=== PATIENT | female | born 1965 | race Hispanic/Latino ===

== ENCOUNTER → 2023-04-29 | Day surgery (SDC) | payer BC ==
[2023-04-28 15:49] VITALS: BMI 42.3
[2023-04-28 16:14] LABS: Hematocrit 39.4 % (34.9-44.5); Hemoglobin 12.9 g/dL (12.0-15.5); Mean Corpuscular HGB CONC 32.7 g/dL (32.0-36.0); Mean Corpuscular Hemoglobin 27.4 pg (27.0-33.0); Mean Corpuscular Volume 83.8 fl (81.6-98.3); Mean Platelet Volume 9.2 fl (7.4-10.4); Platelet Count 216 10x3/uL (150-450); RBC Distribution Width 15.5 % (11.5-14.5); White Blood Cell (WBC) Count 8.9 10x3/uL (3.5-10.5)
[2023-04-28 16:32] LABS: PTT 29.8 sec (22.0-33.0); Prothrombin Time 10.8 sec (9.5-12.1)
[2023-04-28 16:34] LABS: ALT (SGPT) 18 U/L (8-55); AST (SGOT) 18 U/L (5-34); Albumin 4.3 g/dL (3.5-5.0); Alkaline Phosphatase 73 U/L (40-110); Anion Gap 15 mmol/L (10-20); BUN (Urea Nitrogen) 25 mg/dL (9.8-20.1); Bilirubin, Direct 0.2 mg/dL (0.1-0.3); Bilirubin, Total 0.5 mg/dL (0.2-1.2); Calc. Creatinine Clearance 100 mL/min (70-130); Calcium 8.4 mg/dL (7.8-10.44); Carbon Dioxide 25 mmol/L (22-29); Chloride 106 mmol/L (98-107); Estimated GFR 48; Glucose 90 mg/dL (70-105); Potassium 4.1 mmol/L (3.5-5.1); Protein, Total 6.1 g/dL (6.0-8.3); Sodium 142 mmol/L (136-145)
[~2023-04-29] MED LIST: Albuterol HFA (OR) 200 PUFF INH ONE; Dexamethasone 20 MG/5 ML VIAL ONE; Famotidine/PF 20 mg/2ml Vial ONE; Heparin 10,000 UNITS/ 10 ML VIAL ONE; Heparin 25,000 units/D5W 500 ML ONE; Isoproterenol 0.2 MG/1 ML AMP ONE; Ketorolac Tromethamine 30 MG/ML VIAL ONE; Lidocaine 1% PF 5 ML VIAL ONE; Metoclopramide HCl 10 MG/2 ML VIAL ONE; Ondansetron PF 4 MG/2 ML Vial ONE; PROPOFOL 200 MG/20 ML VIAL ONE; Protamine Sulfate 50 MG/5 ML VIAL ONE; Rocuronium Bromide 10 MG/ML (10ML VIAL) ONE; SUGAMMADEX SODIUM 200 MG/2 ML VIAL ONE; fentaNYL 50 mcg/mL 1 mL Vial ONE
== END | disposition home or self-care (01) ==
LOC: SDC 08:25
PROVIDERS: ATTEND Internal Medicine Cardiovascular Disease
DX: I48.0 Paroxysmal atrial fibrillation (principal); I48.19 Other persistent atrial fibrillation; I10 Essential (primary) hypertension; I25.10 Atherosclerotic heart disease of native coronary artery without angina pectoris; E78.5 Hyperlipidemia, unspecified; E66.01 Morbid (severe) obesity due to excess calories; Z68.41 Body mass index [BMI] 40.0-44.9, adult; Z95.5 Presence of coronary angioplasty implant and graft; Z79.01 Long term (current) use of anticoagulants; Z79.899 Other long term (current) drug therapy
CPT/HCPCS: 80048; 80076; 85027; 85347; 85610; 85730; 93005; 93622; 93623; 93656; 93657; C1732; C1759; C1760; C1894; J1100; J1644; J1885; J2405; J2704; J2720; J2765; J3010; S0028